=== PATIENT | female | born 1990 | race Two or more races ===

== ENCOUNTER 2017-03-03 12:38 | Inpatient (IN) | payer OTHER ==
[2017-03-03 13:16] VITALS: BMI 24.1
--- NOTE | 2017-03-03 14:41 | HP ---
Admission [facility] Chief Complaint: I need to be here for further tx. I was in [facility] for 6 days and now I need to be here. Allergies/Adverse Reactions: Allergies Allergy/AdvReac Type Severity Reaction Status Date / Time diphenhydramine HCl AdvReac Verified 03/03/17 14:42 [From Benadryl] trazodone AdvReac Verified 03/03/17 14:42 History of Present Illness: pt is a 26yr old female with a history of heroin, cocaine, cannabis, dependence seeking rehab for treatment. Exam Limitations: No Limitations - Ebola screening Have you traveled outside of the country in the last 21 days: No Have you had contact with anyone from an Ebola affected area: No Have you been sick,other than usual withdrawal symptoms: No Do you have a fever: No - Review of Systems Constitutional: Diaphoresis, Loss of Appetite, Changes in sleep, Unintentional Wgt. Loss EENT: reports: No Symptoms Reported Respiratory: reports: No Symptoms reported Cardiac: reports: No Symptoms Reported GI: reports: Poor Appetite, Poor Fluid Intake : reports: No Symptoms Reported Musculoskeletal: reports: No Symptoms Reported Integumentary: reports: Other (cyst on labia area of pubic area.) Neuro: reports: No Symptoms reported Endocrine: reports: No Symptoms Reported Hematology: reports: Anemia Psychiatric: reports: Judgement Intact, Mood/Affect Appropiate, Agitated, Anxious Other Systems: Reviewed and Negative Patient History - Patient Medical History Hx Anemia: Yes (folic acid) Hx Asthma: No Hx Chronic Obstructive Pulmonary Disease (COPD): No Hx Cancer: No Hx Cardiac Disorders: No Hx Congestive Heart Failure: No Hx Hypertension: No Hx Hypercholesterolemia: No Hx Pacemaker: No HX Cerebrovascular Accident: No Hx Seizures: No Hx Dementia: No Hx Diabetes: No Hx Gastrointestinal Disorders: Yes (was taking protonix no longer is taking it. ) Hx Liver Disease: No Hx Genitourinary Disorders: No Hx Sexually Transmitted Disorders: No Hx Renal Disease (ESRD): No Hx Thyroid Disease: No Hx Human Immunodeficiency Virus (HIV): No (negative) Hx Hepatitis C: No (negative) Hx Depression: Yes Hx Suicide Attempt: No (denies) Hx Bipolar Disorder: Yes Hx Schizophrenia: No - Patient Surgical History Past Surgical History: No - PPD History Previous Implant?: Yes Documented Results: Negative w/o proof PPD to be Administered?: Yes - Reproductive History Patient is a Female of Child Bearing Age (11 -55 yrs old): Yes Last Menstrual Period: 02/21/17 Patient : No - Smoking Cessation Smoking history: Current every day smoker Have you smoked in the past 12 months: Yes Hx Chewing Tobacco Use: No Initiated information on smoking cessation: Yes 'Breaking Loose' booklet given: 03/03/17 - Substance & Tx. History Hx Alcohol Use: No Hx Substance Use: Yes Substance Use Type: Cocaine, Heroin Hx Substance Use Treatment: Yes - Substances Abused Heroin Route: Inhalation Frequency: 1-3 times last 30 days Amount used: 1 bag Age of first use: 25 Date of Last Use: 03/02/17 Cocaine Route: Smoking Amount used: $10 Age of first use: 26 Date of Last Use: 03/02/17 Marijuana/Hashish Route: Smoking Frequency: Daily Amount used: 1 plunt Age of first use: 14 Date of Last Use: 03/02/17 Family Disease History - Family Disease History Family Disease History: CA: Mother (breast CA in [place]), Other: Father ( lung ) Admission Physical Exam S - Vital Signs Vital Signs: Vital Signs - 24 hr 03/03/17 13:13 Temperature 98 F Pulse Rate 112 H Respiratory 20 Rate Blood Pressure 124/72 - Physical General Appearance: Yes: Appropriately Dressed, Mild Distress, Tremorous, Irritable, Anxious HEENTM: Yes: Normal ENT Inspection Respiratory: Yes: Lungs Clear, Normal Breath Sounds Neck: Yes: No masses,lesions,Nodules Breast: Yes: Within Normal Limits Cardiology: Yes: Regular Rhythm, Regular Rate, S1, S2 Abdominal: Yes: Normal Bowel Sounds, Non Tender, Soft Genitourinary: Yes: Within Normal Limits Back: Yes: Normal Inspection Musculoskeletal: Yes: full range of Motion Extremities: Yes: Normal Capillary Refill, Non-Tender Neurological: Yes: Fully Oriented, Normal Mood/Affect, Normal Response Integumentary: Yes: Other (cyst to labia of pubic area as per pt.) Lymphatic: Yes: Within Normal Limits - Diagnostic (1) Heroin abuse Current Visit: Yes Status: Chronic (2) Cocaine dependence Current Visit: Yes Status: Chronic Qualifiers: Substance use status: uncomplicated Qualified Code(s): F14.20 - Cocaine dependence, uncomplicated (3) Cannabis dependence Current Visit: Yes Status: Chronic (4) Benzodiazepine abuse Current Visit: Yes Status: Chronic (5) Nicotine dependence Current Visit: Yes Status: Chronic Qualifiers: Nicotine product type: cigarettes Substance use status: uncomplicated Qualified Code(s): F17.210 - Nicotine dependence, cigarettes, uncomplicated (6) Cyst of perineum of female Current Visit: Yes Status: Acute Cleared for Admission [facility] - Detox or Rehab [facility] Level of Care: Medically Managed Claeared for Rehab Admission: Yes [facility] Breath Alcohol Content Breath Alcohol Content: 0 Urine Pregancy Test - Result Urine Test Results: Negative- NO Line Present Urine Drug Screen - Results Drug Screen Negative: No Urine Drug Screen Results: THC-Marijuana, SADIQ-Cocaine, OPI-Opiates, BZO- Benzodiazepines, MTD-Methadone
[2017-03-03] MEDS ORDERED: MAGNESIUM CITRATE 300 ML BOTTLE PO PRN (15:03)
[2017-03-03] MEDS ORDERED: ACETAMINOPHEN 325 MG TABLET (FP) PO PRN (15:03)
[2017-03-03] MEDS ORDERED: MAG HYDROX/AL HYDROX/SIMETH 30 ML UNIT-DOSE CUP PO PRN (15:03)
[2017-03-03] MEDS ORDERED: guaiFENesin/D-METHORPHAN HB 10 ML UNIT-DOSE CUPS PO PRN (15:03)
[2017-03-03] MEDS ORDERED: MAGNESIUM HYDROX 2400MG/30ML ORAL SUSPENSION 30 ML CUP PO PRN (15:03)
[2017-03-03] MEDS ORDERED: IBUPROFEN 400 MG TABLET (FP) PO PRN (15:03)
[2017-03-03] MEDS ORDERED: LOPERAMIDE HCL 2 MG CAPSULE PO PRN (15:03)
[2017-03-03] MEDS ORDERED: NICOTINE POLACRILEX 2 MG GUM BUC PRN (15:03)
[2017-03-03] MEDS ORDERED: MENTHOL/PHENOL 1 EACH UD MM PRN (15:03)
[2017-03-03] MEDS ORDERED: LEVOFLOXACIN 750 MG TABLET PO SCH (15:15)
[2017-03-03] MEDS ORDERED: TUBERCULIN PPD 5 TU/0.1ML VIAL ID ONE (16:38)
--- NOTE | 2017-03-03 18:44 | PN ---
E[facility] Progress Note Note: Psychiatry Attending's production sanitizer note : Called to address complaint of insomnia. Seroquel 50 mg po hs.Ordered. Side effects/benefits discussed with patient. She agrees with plan.
[2017-03-03] MEDS: QUEtiapine FUMARATE 50 MG TABLET PO SCH (21:47)
[2017-03-03] MEDS: THIAMINE HCL 100 MG TABLET (FP) PO SCH (21:47)
[2017-03-03] MEDS: BACITRACIN 0.9 GM PACKET TP SCH (21:47)
[2017-03-03 23:01] LABS: URINE APPEARANCE CLEAR; URINE BILIRUBIN NEGATIVE (NEGATIVE); URINE BLOOD NEGATIVE (NEGATIVE); URINE COLOR YELLOW; URINE GLUCOSE (UA) NEGATIVE (NEGATIVE); URINE KETONE NEGATIVE (NEGATIVE); URINE LEUK ESTERASE NEGATIVE (NEGATIVE); URINE NITRITE NEGATIVE (NEGATIVE); URINE PROTEIN NEGATIVE (NEGATIVE); URINE UROBILINOGEN NEGATIVE E.U./dl (0.2-1.0)
[2017-03-04] MEDS ORDERED: PT OWN MED DRAWER 7, Y5N ONE (05:18)
[2017-03-04] MEDS: LEVOFLOXACIN 250 MG TABLET (FP) PO SCH (07:04)
[2017-03-04 07:35] VITALS: TEMP 97.9
[2017-03-04 10:02] LABS: MCH 26.5 pg (25.7-33.7); MCHC 32.1 g/dl (32.0-36.0); MEAN CELL VOLUME 82.6 fl (80-96); MEAN PLT VOLUME 9.4 fl (7.5-11.1); PLATELET COUNT 236 K/MM3 (134-434); RDW 14.8 % (11.6-15.6); WHITE BLOOD COUNT 8.9 K/mm3 (4.0-10.0)
[2017-03-04] MEDS: PRENATAL VITAMINS W/ FOLIC ACID TABLET (FP) PO SCH (10:19)
[2017-03-04] MEDS: BACITRACIN 0.9 GM PACKET TP SCH ×2 (10:19→21:42)
[2017-03-04] MEDS ORDERED: hydrOXYzine PAMOATE 50 MG CAPSULE (FP) PO PRN (10:33)
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
[2017-03-04 10:44] LABS: ALBUMIN 3.4 g/dl (3.4-5.0); ALK PHOS 75 U/L (45-117); BILIRUBIN,TOTAL 0.3 mg/dL (0.2-1.0); CALCIUM 8.5 mg/dL (8.5-10.1); CO2 29 mmol/L (21-32); CREATININE 0.8 mg/dL (0.55-1.02); GLUCOSE,RANDOM 78 mg/dL (74-106); SGOT/AST 11 U/L (15-37); SGPT/ALT 13 U/L (12-78); TOT PROT 6.1 g/dl (6.4-8.2)
[2017-03-04 10:52] LABS: ANION GAP 7 (8-16)
--- NOTE | 2017-03-04 11:42 | EKG ---
Test Reason : Blood Pressure : / mmHG Vent. Rate : 094 BPM Atrial Rate : 094 BPM P-R Int : 130 ms QRS Dur : 090 ms QT Int : 350 ms P-R-T Axes : 052 019 052 degrees QTc Int : 437 ms NORMAL SINUS RHYTHM NORMAL ECG NO PREVIOUS ECGS AVAILABLE Confirmed by HOWARD SPEARS MD ([id number]) on 03/04/2017 11:42:08 AM Referred By: zAul Blanc Confirmed By:HOWARD SPEARS MD
[2017-03-04 13:11] LABS: HIV 1 & 2 AB NEGATIVE; HIV 1 AGp24 NEGATIVE
[2017-03-04] MEDS: QUEtiapine FUMARATE 50 MG TABLET PO SCH (21:42)
[2017-03-04] MEDS: THIAMINE HCL 100 MG TABLET (FP) PO SCH (21:42)
[2017-03-05] MEDS: LEVOFLOXACIN 250 MG TABLET (FP) PO SCH (06:58)
[2017-03-05 07:22] VITALS: BP 111/68; PULSE 83
--- NOTE | 2017-03-05 07:32 | PN ---
Sheila Progress Note Note: INFORMED BY RN PT REFUSE LEVAQUIN. PER PT SHE SPIT OUT YESTERDAYS DOSE AND IS REFUSING TODAYS DOSE HER PERINEAL CYST HAS RESOLVED LEVAQUIN D/C'ED
[2017-03-05] MEDS: PRENATAL VITAMINS W/ FOLIC ACID TABLET (FP) PO SCH (09:08)
[2017-03-05] MEDS: BACITRACIN 0.9 GM PACKET TP SCH ×2 (09:09→23:45)
[2017-03-05] MEDS: QUEtiapine FUMARATE 50 MG TABLET PO SCH (23:45)
[2017-03-05] MEDS: THIAMINE HCL 100 MG TABLET (FP) PO SCH (23:46)
== END 2017-03-05 15:15 | disposition left against medical advice (07) | DRG 770 ==
LOC: YASAS 12:38 → Y3E 15:21
PROVIDERS: ADMIT Psychiatry & Neurology Psychiatry; ATTEND Psychiatry & Neurology Psychiatry
PROC: HZ42ZZZ Group Counseling for Substance Abuse Treatment, Cognitive-Behavioral (ICD-10-PCS; principal; 2017-03-05)
DX: F11.29 Opioid dependence with unspecified opioid-induced disorder (principal); F12.20 Cannabis dependence, uncomplicated; F14.20 Cocaine dependence, uncomplicated; F41.1 Generalized anxiety disorder; F43.10 Post-traumatic stress disorder, unspecified; Z87.19 Personal history of other diseases of the digestive system; Z86.2 Personal history of diseases of the blood and blood-forming organs and certain disorders involving the immune mechanism
CPT/HCPCS: 36415; 80053; 81003; 85027; 86593; 87389; 93005; 93010

== ENCOUNTER 2024-08-13 09:29 | Inpatient (IN) | payer OTHER ==
[2024-08-13] MEDS ORDERED: ACETAMINOPHEN 325 MG TABLET (FP) PO PRN (11:02)
[2024-08-13] MEDS ORDERED: NALOXONE (NARCAN) HCL 4 MG/0.1 ML SPRAY NS PRN (11:02)
[2024-08-13] MEDS ORDERED: IBUPROFEN 400 MG TABLET (FP) PO PRN (11:02)
[2024-08-13] MEDS ORDERED: BENZONATATE 200 MG CAPSULE PO PRN (11:02)
[2024-08-13] MEDS ORDERED: LOPERAMIDE HCL 2 MG CAPSULE PO PRN (11:02)
[2024-08-13] MEDS ORDERED: MAGNESIUM HYDROX 2400MG/30ML ORAL SUSPENSION 30 ML CUP PO PRN (11:02)
[2024-08-13] MEDS ORDERED: POLYETHYLENE GLYCOL (HEALTHYLAX) 3350 17 GM PACKET PO PRN (11:02)
[2024-08-13] MEDS ORDERED: IBUPROFEN 600 MG TABLET (FP) PO PRN (11:02)
[2024-08-13] MEDS ORDERED: NALOXONE (NYS OPIOID OVERDOSE PROGRAM) 4 MG/0.1 ML SPRAY NS PRN (11:02)
[2024-08-13] MEDS ORDERED: ONDANSETRON *ODT* 4 MG TABLET SL PRN (11:02)
[2024-08-13] MEDS ORDERED: MAG HYDROX/AL HYDROX/SIMETH 30 ML UNIT-DOSE CUP PO PRN (11:02)
[2024-08-13] MEDS ORDERED: guaiFENesin 600 MG TABLET.ER (FP) PO PRN (11:02)
[2024-08-13] MEDS ORDERED: DICYCLOMINE HCL 10 MG CAPSULE PO PRN (11:02)
[2024-08-13] MEDS ORDERED: BENZOCAINE/MENTHOL (CHLORASEPTIC ) LOZENGE MM PRN (11:02)
[2024-08-13 11:21] VITALS: BMI 33.3
[2024-08-13] MEDS ORDERED: methaDONE HCL 10 MG TABLET (FOR DETOX USE ONLY) ONE (11:55)
[2024-08-13] MEDS: methaDONE HCL 10 MG TABLET PO ONE (11:58)
[2024-08-13] MEDS ORDERED: methaDONE HCL 10 MG TABLET PO PRN (13:03)
[2024-08-13] MEDS: cloNIDine HCL 0.1 MG TABLET PO SCH (13:48)
[2024-08-13] MEDS: METHOCARBAMOL 500 MG TABLET PO PRN (17:13)
[2024-08-13] MEDS: diazePAM 5 MG TABLET PO SCH (17:25)
[2024-08-13] MEDS: MELATONIN 5 MG TABLETS PO SCH (23:25)
[2024-08-13] MEDS: THIAMINE 100 MG TABLET PO SCH (23:26)
[2024-08-14] MEDS: PRENATAL VITAMINS W/ FOLIC ACID TABLET (FP) PO SCH (10:18)
[2024-08-14] MEDS: methaDONE 40 MG, methaDONE 10 MG PO ONE (10:19)
[2024-08-14] MEDS: BISMUTH SUBSALICYLATE 524 MG/30 ML PO PRN (17:17)
[2024-08-14] MEDS: hydrOXYzine PAMOATE 25 MG CAPSULE (FP) PO PRN (22:19)
[2024-08-15] MEDS ORDERED: cloNIDine HCL 0.1 MG TABLET PO PRN
[2024-08-15] MEDS: diazePAM 5 MG TABLET PO SCH (06:15)
[2024-08-15] MEDS: methaDONE 40 MG, methaDONE 20 MG PO ONE (09:07)
[2024-08-15] MEDS: diazePAM 5 MG TABLET PO PRN (18:19)
[2024-08-16] MEDS: diazePAM 5 MG TABLET PO SCH (06:18)
[2024-08-16] MEDS: methaDONE 40 MG, methaDONE 30 MG PO ONE (09:19)
[2024-08-17] MEDS: diazePAM 5 MG TABLET PO ONE (05:54)
[2024-08-17] MEDS: methaDONE HCL 40 MG DISPERSABLE TABLET PO ONE (09:25)
[2024-08-18] MEDS: methaDONE 80 MG, methaDONE 10 MG PO ONE (10:28)
[2024-08-19] MEDS: methaDONE 80 MG, methaDONE 10 MG PO ONE (13:25)
[2024-08-20] MEDS: methaDONE 80 MG, methaDONE 10 MG PO ONE (06:10)
[2024-08-20 09:57] VITALS: BP 108/60; PULSE 83; RESP 18; TEMP 97.7
== END 2024-08-20 13:51 | disposition home or self-care (01) | DRG 773 ==
LOC: YASAS 09:29 → Y6N 11:29
PROVIDERS: ADMIT Allergy & Immunology; ATTEND Surgery
PROC: HZ2ZZZZ Detoxification Services for Substance Abuse Treatment (ICD-10-PCS; principal; 2024-08-13)
DX: F11.23 Opioid dependence with withdrawal (principal); F13.230 Sedative, hypnotic or anxiolytic dependence with withdrawal, uncomplicated; F14.20 Cocaine dependence, uncomplicated; F17.210 Nicotine dependence, cigarettes, uncomplicated; F41.9 Anxiety disorder, unspecified; F32.A Depression, unspecified; F43.10 Post-traumatic stress disorder, unspecified; Z88.8 Allergy status to other drugs, medicaments and biological substances
CPT/HCPCS: 80305; 80307; 81025; 87811; 93005; 93010

== ENCOUNTER 2024-09-25 16:50 | Inpatient (IN) | payer OTHER ==
[2024-09-25 18:19] VITALS: BMI 33.8
[2024-09-25] MEDS ORDERED: ACETAMINOPHEN 325 MG TABLET (FP) PO PRN (19:27)
[2024-09-25] MEDS ORDERED: MAGNESIUM HYDROX 2400MG/30ML ORAL SUSPENSION 30 ML CUP PO PRN (19:27)
[2024-09-25] MEDS ORDERED: BENZOCAINE/MENTHOL (CHLORASEPTIC ) LOZENGE MM PRN (19:27)
[2024-09-25] MEDS ORDERED: NALOXONE (NARCAN) HCL 4 MG/0.1 ML SPRAY NS PRN (19:27)
[2024-09-25] MEDS ORDERED: MAG HYDROX/AL HYDROX/SIMETH 30 ML UNIT-DOSE CUP PO PRN (19:27)
[2024-09-25] MEDS ORDERED: NICOTINE POLACRILEX 2 MG GUM BUC PRN (19:27)
[2024-09-25] MEDS ORDERED: guaiFENesin 600 MG TABLET.ER (FP) PO PRN (19:27)
[2024-09-25] MEDS ORDERED: BENZONATATE 200 MG CAPSULE PO PRN (19:27)
[2024-09-25] MEDS ORDERED: POLYETHYLENE GLYCOL (HEALTHYLAX) 3350 17 GM PACKET PO PRN (19:27)
[2024-09-25] MEDS ORDERED: IBUPROFEN 400 MG TABLET (FP) PO PRN (19:27)
[2024-09-25] MEDS ORDERED: ONDANSETRON *ODT* 4 MG TABLET SL PRN (19:27)
[2024-09-25] MEDS ORDERED: DICYCLOMINE HCL 10 MG CAPSULE PO PRN (19:27)
[2024-09-25] MEDS ORDERED: IBUPROFEN 600 MG TABLET (FP) PO PRN (19:27)
[2024-09-25] MEDS ORDERED: LOPERAMIDE HCL 2 MG CAPSULE PO PRN (19:27)
[2024-09-25] MEDS ORDERED: BISMUTH SUBSALICYLATE 524 MG/30 ML PO PRN (19:27)
[2024-09-25] MEDS ORDERED: NICOTINE POLACRILEX 2 MG LOZENGE BC PRN (19:27)
[2024-09-25] MEDS ORDERED: chlordiazePOXIDE HCL 25 MG CAPSULE PO PRN (19:30)
[2024-09-25] MEDS ORDERED: chlordiazePOXIDE HCL 25 MG CAPSULE ONE (21:49)
[2024-09-25] MEDS ORDERED: methaDONE HCL 10 MG TABLET (FOR DETOX USE ONLY) ONE (21:49)
[2024-09-25] MEDS: chlordiazePOXIDE HCL 25 MG CAPSULE PO ONE (21:59)
[2024-09-25] MEDS: methaDONE HCL 10 MG TABLET PO ONE (22:00)
[2024-09-25] MEDS: THIAMINE 100 MG TABLET PO SCH (22:46)
[2024-09-25] MEDS: hydrOXYzine PAMOATE 25 MG CAPSULE (FP) PO PRN (22:47)
[2024-09-25] MEDS: METHOCARBAMOL 500 MG TABLET PO PRN (22:47)
[2024-09-25] MEDS: MELATONIN 5 MG TABLETS PO SCH (22:49)
[2024-09-25] MEDS: chlordiazePOXIDE HCL 25 MG CAPSULE PO SCH (22:50)
[2024-09-26] MEDS ORDERED: methaDONE HCL 10 MG TABLET PO SCH (09:00)
[2024-09-26] MEDS: methaDONE 80 MG, methaDONE 20 MG PO SCH (10:06)
[2024-09-26] MEDS: PNEUMOC 20-VAL CONJ-DIP CRM/PF 0.5 ML SYRINGE IM ONE (10:07)
[2024-09-26] MEDS: PRENATAL VITAMINS W/ FOLIC ACID TABLET (FP) PO SCH (10:09)
[2024-09-26 13:19] VITALS: BP 119/73; PULSE 90; RESP 18; TEMP 97.7
[2024-09-26] MEDS: NALOXONE (NYS OPIOID OVERDOSE PROGRAM) 4 MG/0.1 ML SPRAY NS SCH (13:52)
[2024-09-27] MEDS ORDERED: chlordiazePOXIDE HCL 25 MG CAPSULE PO SCH (05:00)
[2024-09-28] MEDS ORDERED: chlordiazePOXIDE HCL 10 MG CAPSULE PO PRN
[2024-09-28] MEDS ORDERED: chlordiazePOXIDE HCL 10 MG CAPSULE PO SCH (05:00)
[2024-09-29] MEDS ORDERED: chlordiazePOXIDE HCL 10 MG CAPSULE PO SCH (05:00)
[2024-09-30] MEDS ORDERED: chlordiazePOXIDE HCL 10 MG CAPSULE PO ONE (05:00)
== END 2024-09-26 13:40 | disposition home or self-care (01) | DRG 773 ==
LOC: YASAS 16:50 → Y3N 21:55
PROVIDERS: ADMIT Allergy & Immunology; ATTEND Surgery
PROC: HZ2ZZZZ Detoxification Services for Substance Abuse Treatment (ICD-10-PCS; principal; 2024-09-25)
DX: F11.23 Opioid dependence with withdrawal (principal); F13.20 Sedative, hypnotic or anxiolytic dependence, uncomplicated; F14.20 Cocaine dependence, uncomplicated; F17.210 Nicotine dependence, cigarettes, uncomplicated; F41.9 Anxiety disorder, unspecified; F32.A Depression, unspecified; F43.10 Post-traumatic stress disorder, unspecified
CPT/HCPCS: 80305; 80307; 81025